=== PATIENT | male | born 1960 | race Caucasian/White ===

== ENCOUNTER 2017-09-16 06:43 | Inpatient (IN) | payer OTHER ==
[~2017-09-16] VITALS: Ht 175.3 cm; Wt 89.4 kg
[2017-09-16] MEDS ORDERED: SIMV40TA5 PO (07:03)
[2017-09-16] MEDS ORDERED: METO-385 PO (07:03)
[2017-09-16] MEDS ORDERED: ASPI-1159 PO (07:04)
[2017-09-16] MEDS ORDERED: CLOP75TA33 PO (07:05)
[2017-09-16] MEDS ORDERED: ONDANSETRON HCL 4MG/2ML VIAL IV ONE (07:30)
[2017-09-16] MEDS ORDERED: SODIUM CHLORIDE 0.9% 1,000 ML IV ONE ×2 (07:30→11:30)
[2017-09-16] MEDS ORDERED: MECLIZINE 25MG TABLET PO ONE ×2 (07:30→11:30)
[2017-09-16] MEDS ORDERED: DIAZEPAM 5 MG TABLET PO ONE (10:30)
[2017-09-16 10:38] LABS: CHLORIDE 107 mEq/L (98-107)
[2017-09-16 10:44] LABS: BASOPHILS % 0.5 % (0.0-2.0); EOSINOPHILS % 0.2 % (0.0-5.0); HEMOGLOBIN. 14.3 g/dL (14.0-18.0); LYMPHOCYTES % 10.3 % (20.0-50.0); MEAN CORPUSCULAR HEMOGLOBIN 31.4 pg (28.0-32.0); MEAN CORPUSCULAR VOLUME 92.1 fL (80.0-94.0); MONOCYTES % 4.7 % (2.0-8.0); NEUTROPHILS % 84.3 % (40.0-76.0); PLATELET 230 x1000/uL (130-400); RED BLOOD CELL COUNT 4.56 mill/uL (4.7-6.1); RED CELL DISTRIBUTION WIDTH 13.3 % (11.6-14.6)
[2017-09-16 10:47] LABS: CARBON DIOXIDE 26 mEq/L (21-32)
[2017-09-16] MEDS ORDERED: DOCUSATE SODIUM 100MG CAPSULE PO PRN (16:30)
[2017-09-16] MEDS ORDERED: ONDANSETRON HCL 4MG/2ML VIAL IV PRN (16:30)
[2017-09-16] MEDS ORDERED: CLONIDINE 0.1MG TABLET PO PRN (16:30)
[2017-09-16] MEDS ORDERED: HYDROCODONE/ACETAMINOPHEN 5/325MG TABLET PO PRN (16:30)
[2017-09-16 18:41] VITALS: BP 95/56
[2017-09-16] MEDS ORDERED: INFLUENZA VIRUS VACCINE 0.5ML SYR IM ONE (19:15)
[2017-09-16 20:00] VITALS: BP 111/67
[2017-09-16] MEDS: GUAIFENESIN 200MG/10ML SUGAR FREE UDC PO PRN (20:37)
[2017-09-16] MEDS: MECLIZINE 25MG TABLET PO PRN (20:37)
[2017-09-16] MEDS: METOPROLOL TARTRATE 25MG TABLET PO SCH (20:43)
[2017-09-17] VITALS: BP 102/62
[2017-09-17] MEDS ORDERED: DEXTROSE 50% WATER 50ML SYRINGE IV PRN (02:30)
[2017-09-17 04:00] VITALS: BP 102/61
[2017-09-17] MEDS: GUAIFENESIN 200MG/10ML SUGAR FREE UDC PO PRN (05:35)
[2017-09-17 06:40] LABS: BASOPHILS % 0.7 % (0.0-2.0); HEMATOCRIT. 40.8 % (42.0-52.0); LYMPHOCYTES % 37.4 % (20.0-50.0); MEAN CORPUSCULAR HEMOGLOBIN 31.5 pg (28.0-32.0); MEAN PLATELET VOLUME 8.1 fl (7.4-10.4); MONOCYTES % 11.7 % (2.0-8.0); NEUTROPHILS % 47.2 % (40.0-76.0); PLATELET 230 x1000/uL (130-400); RED BLOOD CELL COUNT 4.44 mill/uL (4.7-6.1); RED CELL DISTRIBUTION WIDTH 13.7 % (11.6-14.6)
[2017-09-17] MEDS ORDERED: BLOOD SUGAR DIAGNOSTIC STRIP TEST SCH (06:45)
[2017-09-17] MEDS ORDERED: INSULIN LISPRO 100 UNITS/ML SUBCUT SCH (07:15)
[2017-09-17 07:46] VITALS: BP 104/55
[2017-09-17 07:53] LABS: CHLORIDE 107 mEq/L (98-107)
[2017-09-17 08:09] LABS: CARBON DIOXIDE 28 mEq/L (21-32)
[2017-09-17] MEDS: MECLIZINE 25MG TABLET PO PRN ×2 (08:50→17:07)
[2017-09-17] MEDS: ASPIRIN 81MG EC TABLET PO SCH (08:50)
[2017-09-17 12:00] VITALS: BP 147/96
[2017-09-17] MEDS: METOPROLOL TARTRATE 25MG TABLET PO SCH ×2 (12:53→21:15)
[2017-09-17 16:00] VITALS: BP 96/64
[2017-09-17] MEDS: ACETAMINOPHEN 325MG TABLET PO PRN (19:44)
[2017-09-17 20:00] VITALS: BP 119/71
[2017-09-18] VITALS: BP 112/63
[2017-09-18 04:00] VITALS: BP 113/71
[2017-09-18] MEDS: GUAIFENESIN 200MG/10ML SUGAR FREE UDC PO PRN (05:25)
[2017-09-18 07:44] LABS: CLARITY URINE CLEAR (CLEAR); COLOR URINE YELLOW (YELLOW); KETONES URINE NEGATIVE (NEGATIVE); LEUKOCYTE ESTERASE URINE NEGATIVE (NEGATIVE); NITRITE URINE NEGATIVE (NEGATIVE); OCCULT BLOOD URINE TRACE (NEGATIVE); PROTEIN URINE NEGATIVE (NEGATIVE); SPECIFIC GRAVITY URINE 1.023 (1.005-1.030); UROBILINOGEN URINE 0.2 E.U./dL (0.2-1.0)
[2017-09-18 08:00] VITALS: BP 118/70
[2017-09-18] MEDS: ASPIRIN 81MG EC TABLET PO SCH (10:43)
[2017-09-18] MEDS: METOPROLOL TARTRATE 25MG TABLET PO SCH (10:44)
[2017-09-18 12:00] VITALS: BP 121/70
[2017-09-18] MEDS: ACETAMINOPHEN 325MG TABLET PO PRN (13:16)
[2017-09-18 13:38] VITALS: BP 121/70
== END 2017-09-18 15:00 | disposition home or self-care (01) | DRG 74 ==
LOC: ER 07:19 → 5WST 15:32 → ENRESERV 15:32 → SUPCPDRO 16:22
PROVIDERS: ADMIT Hospitalist; ATTEND Hospitalist
DX: G90.8 Other disorders of autonomic nervous system (principal); S09.90XA Unspecified injury of head, initial encounter; B34.9 Viral infection, unspecified; E11.9 Type 2 diabetes mellitus without complications; E78.00 Pure hypercholesterolemia, unspecified; X58.XXXA Exposure to other specified factors, initial encounter; I10 Essential (primary) hypertension; E78.5 Hyperlipidemia, unspecified; I25.10 Atherosclerotic heart disease of native coronary artery without angina pectoris; Z79.82 Long term (current) use of aspirin; Z79.02 Long term (current) use of antithrombotics/antiplatelets; I25.2 Old myocardial infarction; Y93.89 Activity, other specified; Y92.89 Other specified places as the place of occurrence of the external cause; Y99.8 Other external cause status
CPT/HCPCS: 36415; 70450; 70551; 71045; 80053; 81001; 82962; 85025; 93005; 96361; 96374; 99285; J2405; J7030; J8597

== ENCOUNTER 2022-01-29 11:58 | Inpatient (IN) | payer OTHER ==
[~2022-01-29] VITALS: Ht 170.2 cm; Wt 95.8 kg
[~2022-01-29 11:58] MED LIST: ASPI-1497 PO; CLOP75TA33 PO; METO-385 PO; SIMV-46 PO
[2022-01-29 12:46] LABS: BASOPHILS % 0.4 % (0.0-2.0); EOSINOPHILS % 2.1 % (0.0-5.0); HEMATOCRIT. 43.8 % (42.0-52.0); HEMOGLOBIN. 14.8 g/dL (14.0-18.0); LYMPHOCYTES % 31.7 % (20.0-50.0); MEAN CORPUSCULAR HEMOGLOBIN 31.1 pg (28.0-32.0); MEAN CORPUSCULAR VOLUME 92.3 fL (80.0-94.0); MEAN PLATELET VOLUME 8.4 fl (7.4-10.4); MONOCYTES % 9.4 % (2.0-8.0); NEUTROPHILS % 56.4 % (40.0-76.0); PLATELET 248 x1000/uL (130-400); RED BLOOD CELL COUNT 4.75 mill/uL (4.7-6.1); RED CELL DISTRIBUTION WIDTH 13.4 % (11.6-14.6)
[2022-01-29 12:54] LABS: CHLORIDE 108 mEq/L (98-107)
[2022-01-29 15:33] LABS: CLARITY URINE CLEAR (CLEAR); COLOR URINE YELLOW (YELLOW); KETONES URINE TRACE (NEGATIVE); LEUKOCYTE ESTERASE URINE NEGATIVE (NEGATIVE); NITRITE URINE NEGATIVE (NEGATIVE); OCCULT BLOOD URINE NEGATIVE (NEGATIVE); PH URINE 5.5 (4.5-8.0); PROTEIN URINE NEGATIVE (NEGATIVE); SPECIFIC GRAVITY URINE 1.024 (1.005-1.030); UROBILINOGEN URINE 0.2 E.U./dL (0.2-1.0)
[2022-01-29] MEDS ORDERED: CEFTRIAXONE 1 G PREMIX 50 ML IV ONE (16:45)
[2022-01-29] MEDS ORDERED: SODIUM CHLORIDE 0.9% 1,000 ML IV ONE (16:45)
[2022-01-29] MEDS ORDERED: METRONIDAZOLE 500 MG PREMIX 100 ML IV ONE (16:45)
[2022-01-29] MEDS ORDERED: ONDANSETRON HCL 4MG/2ML INJ IV PRN (19:30)
[2022-01-29] MEDS ORDERED: ACETAMINOPHEN 650MG SUPP PR PRN (19:30)
[2022-01-29] MEDS: PANTOPRAZOLE SODIUM 40 MG/VIAL IV SCH (20:00)
[2022-01-29] MEDS: DEXT 5%/0.45% NACL 1000ML 1,000 ML IV SCH ×2 (20:01→23:26)
[2022-01-29] MEDS ORDERED: ENOXAPARIN 40MG/0.4ML SYR SUBCUT SCH (21:00)
[2022-01-29] MEDS: HYDROMORPHONE HCL/PF 2MG/ML CPJ IV PRN (21:33)
[2022-01-29] MEDS ORDERED: METRONIDAZOLE 500 MG PREMIX 100 ML IV SCH (22:00)
[2022-01-29 23:00] VITALS: BP 126/73
[2022-01-29] MEDS ORDERED: MECL-159 PO (23:08)
[2022-01-29] MEDS ORDERED: ZOLP10TA2 PO (23:35)
[2022-01-30 05:07] VITALS: BP 115/66
[2022-01-30 07:03] LABS: CHLORIDE 108 mEq/L (98-107)
[2022-01-30 07:14] LABS: BASOPHILS % 0.4 % (0.0-2.0); EOSINOPHILS % 3.9 % (0.0-5.0); HEMATOCRIT. 40.5 % (42.0-52.0); HEMOGLOBIN. 13.9 g/dL (14.0-18.0); LYMPHOCYTES % 34.8 % (20.0-50.0); MEAN CORPUSCULAR HEMOGLOBIN 31.6 pg (28.0-32.0); MEAN CORPUSCULAR VOLUME 92.2 fL (80.0-94.0); MEAN PLATELET VOLUME 8.8 fl (7.4-10.4); MONOCYTES % 11.6 % (2.0-8.0); NEUTROPHILS % 49.3 % (40.0-76.0); PLATELET 214 x1000/uL (130-400); RED BLOOD CELL COUNT 4.39 mill/uL (4.7-6.1); RED CELL DISTRIBUTION WIDTH 13.6 % (11.6-14.6)
[2022-01-30 08:00] VITALS: BP 120/68
[2022-01-30] MEDS: METRONIDAZOLE 500 MG PREMIX 100 ML IV SCH ×3 (08:50→21:47)
[2022-01-30] MEDS: PANTOPRAZOLE SODIUM 40 MG/VIAL IV SCH (08:53)
[2022-01-30 12:00] VITALS: BP 113/71
[2022-01-30] MEDS ORDERED: HYDRALAZINE 20MG/ML VIAL IV PRN (12:00)
[2022-01-30 16:00] VITALS: BP 117/57
[2022-01-30] MEDS: CEFTRIAXONE 1,000 MG in DEXTROSE 5% WATER 50 ML IV SCH (16:54)
[2022-01-30] MEDS ORDERED: CEFTRIAXONE 1,000 MG in DEXTROSE 5% WATER 50 ML IV SCH (17:00)
[2022-01-30] MEDS: ENOXAPARIN 30MG/0.3ML SYR SUBCUT SCH (18:11)
[2022-01-30] MEDS: HYDROMORPHONE HCL/PF 2MG/ML CPJ IV PRN (18:11)
[2022-01-30 20:00] VITALS: BP 104/59
[2022-01-30] MEDS: DEXT 5%/0.45% NACL 1000ML 1,000 ML IV SCH (21:48)
[2022-01-31] VITALS: BP 94/53
[2022-01-31 04:00] VITALS: BP 102/59
[2022-01-31] MEDS: ENOXAPARIN 30MG/0.3ML SYR SUBCUT SCH ×2 (06:43→19:04)
[2022-01-31] MEDS: METRONIDAZOLE 500 MG PREMIX 100 ML IV SCH ×3 (06:43→21:08)
[2022-01-31 08:00] VITALS: BP 100/61
[2022-01-31 12:00] VITALS: BP 124/64
[2022-01-31 16:00] VITALS: BP 130/59
[2022-01-31] MEDS: CEFTRIAXONE 1,000 MG in DEXTROSE 5% WATER 50 ML IV SCH (18:11)
[2022-01-31] MEDS: PANTOPRAZOLE SODIUM 40 MG/VIAL IV SCH (18:15)
[2022-01-31 20:00] VITALS: BP 105/58
[2022-01-31 21:37] LABS: BASOPHILS % 0.3 % (0.0-2.0); EOSINOPHILS % 3.7 % (0.0-5.0); HEMATOCRIT. 43.2 % (42.0-52.0); HEMOGLOBIN. 14.6 g/dL (14.0-18.0); LYMPHOCYTES % 41.7 % (20.0-50.0); MEAN CORPUSCULAR HEMOGLOBIN 31.6 pg (28.0-32.0); MEAN CORPUSCULAR VOLUME 93.4 fL (80.0-94.0); MONOCYTES % 11.3 % (2.0-8.0); PLATELET 230 x1000/uL (130-400); RED BLOOD CELL COUNT 4.63 mill/uL (4.7-6.1); RED CELL DISTRIBUTION WIDTH 13.6 % (11.6-14.6)
[2022-01-31] MEDS: HYDROMORPHONE HCL/PF 2MG/ML CPJ IV PRN (22:15)
[2022-01-31] MEDS: DEXT 5%/0.45% NACL 1000ML 1,000 ML IV SCH (23:59)
[2022-02-01] VITALS: BP 111/61
[2022-02-01 04:00] VITALS: BP 105/55
[2022-02-01] MEDS: METRONIDAZOLE 500 MG PREMIX 100 ML IV SCH ×2 (05:05→14:00)
[2022-02-01] MEDS: ENOXAPARIN 30MG/0.3ML SYR SUBCUT SCH (05:05)
[2022-02-01 08:00] VITALS: BP 106/60
[2022-02-01] MEDS: PANTOPRAZOLE SODIUM 40 MG/VIAL IV SCH (08:52)
[2022-02-01 12:00] VITALS: BP 112/68
== END 2022-02-01 16:00 | disposition home or self-care (01) | DRG 392 ==
LOC: ER 11:58 → 6WST 18:05 → EDBEDREQTM 20:35 → EDBEDREQ 20:35 → EDBEDREQSVC 20:35 → ENRESERV 21:58
PROVIDERS: ADMIT Hospitalist; ATTEND Hospitalist
DX: K57.32 Diverticulitis of large intestine without perforation or abscess without bleeding (principal); I10 Essential (primary) hypertension; E78.5 Hyperlipidemia, unspecified; I25.10 Atherosclerotic heart disease of native coronary artery without angina pectoris; I25.2 Old myocardial infarction; M43.16 Spondylolisthesis, lumbar region; E78.00 Pure hypercholesterolemia, unspecified; Z91.013 Allergy to seafood; Z79.82 Long term (current) use of aspirin; Z79.899 Other long term (current) drug therapy; Z82.49 Family history of ischemic heart disease and other diseases of the circulatory system
CPT/HCPCS: 36415; 74176; 76705; 80053; 81003; 83605; 84484; 85025; 93005; 99291; C1893; C9113; J0696; J1170; J1650; J3490; J7030; J7060